=== PATIENT | female | born 1960 | race Two or more races ===

== ENCOUNTER 2023-01-06 04:51 | Emergency (ER) | payer OTHER ==
[~2023-01-06] VITALS: Ht 157.5 cm; Wt 56.2 kg
--- NOTE | 2023-01-06 05:22 | NUR ---
BIBFAMILY C/O BLE "VEINGS POPPING" & VEIN DISCOLORATION X COUPLE HRS. R FOOR FUSION SURGERY AT [facility] 10/25/22. PT AWAKE AND ALERT V/S WNL RR UNLABORED. DAUGHTER AT BEDSIDE WITH PATIENT.
--- NOTE | 2023-01-06 05:42 | NUR ---
CALLED RADIOLOGY TO F/U WITH US TECH ETA. [facility] ARCHITECT WILL PAGE US TECH.
--- NOTE | 2023-01-06 07:31 | NUR ---
Patient discharged to home in stable condition. Written and verbal after care instructions given. Patient verbalizes understanding of instruction.
[2023-01-06 07:32] VITALS: BP 109/69
== END 2023-01-06 07:32 | disposition home or self-care (01) ==
LOC: ER 04:56
DX: I83.93 Asymptomatic varicose veins of bilateral lower extremities (principal); Z88.2 Allergy status to sulfonamides
CPT/HCPCS: 93970-TC

== ENCOUNTER 2024-09-12 12:40 | Emergency (ER) | payer OTHER ==
[~2024-09-12] VITALS: Ht 167.6 cm; Wt 78.5 kg
[2024-09-12] MEDS ORDERED: IOHEXOL-350 100 ML VIAL IV ONE (13:02)
[2024-09-12] MEDS ORDERED: IV NS 0.9% 250 ML IV ONE (13:03)
[2024-09-12] MEDS ORDERED: CT SWABBABLE VALVE TRANS SET 1 EA INFUS.SET MC ONE (13:03)
[2024-09-12 13:07] LABS: BASOPHILS % (AUTO) 0.4 % (0.0-2.0); EOSINOPHILS % (AUTO) 0.3 % (0.0-6.0); HEMATOCRIT 36 % (33-45); HEMOGLOBIN 11.6 g/dL (11.5-14.8); LYMPHOCYTES # (AUTO) 1.4 K/uL (0.8-4.8); LYMPHOCYTES % (AUTO) 21.9 % (20.0-44.0); MEAN CORPUSCULAR HEMOGLOBIN 32 PG (26.0-33.0); MEAN CORPUSCULAR HGB CONC 33 g/dl (31.0-36.0); MEAN CORPUSCULAR VOLUME 97 fL (82-100); MONOCYTES # (AUTO) 0.9 K/uL (0.1-1.30); MONOCYTES % (AUTO) 14.8 % (2.0-12.0); NEUTROPHILS % (AUTO) 62.6 % (43.0-81.0); PLATELET COUNT (AUTO) 194 K/uL (150-450); RED BLOOD CELL COUNT(AUTO) 3.68 MIL/uL (4.0-5.2); RED CELL DISTRIBUTION WIDTH 13.9 % (11.5-15.0); WHITE BLOOD COUNT (AUTO) 6.4 K/uL (4.3-11.0)
[2024-09-12 13:26] LABS: CALCIUM, SERUM 9.5 mg/dL (8.5-10.1); CARBON DIOXIDE 23 mmol/L (21-32); CHLORIDE 106 mmol/L (98-107); CREATININE 0.9 mg/dL (0.6-1.3); GLUCOSE 136 mg/dL (74-106); POTASSIUM 3.8 mmol/L (3.5-5.1); SODIUM SERUM 137 mmol/L (136-145); UREA NITROGEN, BLOOD 21 mg/dL (7-18)
[2024-09-12 13:29] LABS: INR 1.03 (0.91-1.10); PARTIAL THROMBOPLASTIN TIME 23.4 SEC (24.3-34.3); PROTHROMBIN TIME 10.9 SECS (9.2-11.1)
[2024-09-12 13:31] LABS: ALANINE AMINOTRANSFERASE 14 U/L (12-78); ALBUMIN 4.1 g/dL (3.4-5.0); ALKALINE PHOSPHATASE 65 U/L (46-116); ASPARTATE AMINOTRANSFERASE 21 U/L (15-37); BILIRUBIN,DIRECT 0.1 mg/dL (0.0-0.2); BILIRUBIN,TOTAL 0.3 mg/dL (0.2-1.0); TOTAL PROTEIN, SERUM 7.3 g/dL (6.4-8.2)
[2024-09-12 14:19] LABS: LACTIC ACID 1.7 mmol/L (0.4-2.0)
[2024-09-12 16:41] LABS: APPEARANCE,URINE CLEAR (CLEAR); BILIRUBIN,URINE NEGATIVE (NEGATIVE); BLOOD, URINE NEGATIVE Ery/uL (NEGATIVE); COLOR,URINE YELLOW (YELLOW); KETONES,URINE 2+ mg/dL (NEGATIVE); LEUKOCYTE ESTERASE ,URINE NEGATIVE (NEGATIVE); NITRITE, URINE NEGATIVE (NEGATIVE); PROTEIN,URINE NEGATIVE (NEGATIVE); UGLUCOSE NEGATIVE (NEGATIVE); UROBILINOGEN,URINE 0.2 EU/dL (0.2)
[2024-09-12 16:47] LABS: ADD URINE CULTURE NO; BACTERIA,URINE Few /HPF (None Seen); RBC,URINE 0-2 /HPF (0-2); SQUAMOUS EPITHELIAL CELL,UR 0-2 /HPF (None Seen)
[2024-09-12 17:05] VITALS: BP 132/79; TEMP 98; O2SAT 97
== END 2024-09-12 17:45 | disposition short-term general hospital (02) ==
LOC: ER 12:54
DX: R41.82 Altered mental status, unspecified (principal); I10 Essential (primary) hypertension; R73.9 Hyperglycemia, unspecified; Z88.2 Allergy status to sulfonamides; Z20.822 Contact with and (suspected) exposure to COVID-19
CPT/HCPCS: 99291; 70498; 71045; 87426; 93005; 87804 ×2; 70496; 85025; 80048; 87040 ×2; 83605; 80076; 81001; 36415; 84484; 85730; 82962; 70450; J7050; Q9967